=== PATIENT | female | born 1990 | race Caucasian/White ===

== ENCOUNTER 2023-01-26 09:11 | Emergency (ER) | payer MEDICAID ==
[2023-01-26 09:31] VITALS: O2SAT 100
[2023-01-26 10:18] LABS: BASOPHILS # (AUTO) 0.1 10^3/uL (0.0-0.1); BASOPHILS % (AUTO) 1.1 %; EOSINOPHILS # (AUTO) 0.3 10^3/uL (0.0-0.7); EOSINOPHILS % (AUTO) 3.8 %; HCT - HEMATOCRIT 39.5 % (37.0-47.0); HGB - HEMOGLOBIN 12.5 g/dL (12.0-16.0); LYMPHOCYTES # (AUTO) 3.1 10^3/uL (1.5-3.5); LYMPHOCYTES % (AUTO) 34.9 %; MEAN CORPUSCULAR HEMOGLOBIN 27.1 pg (27.0-31.0); MEAN CORPUSCULAR HGB CONC 31.6 g/dL (32.0-36.0); MEAN CORPUSCULAR VOLUME 85.7 fL (81.0-99.0); MEAN PLATELET VOLUME 10.3 fL (7.9-10.8); MONOCYTES # (AUTO) 0.7 10^3/uL (0.0-1.0); MONOCYTES % (AUTO) 7.4 %; NEUTROPHILS # (AUTO) 4.6 10^3/uL (1.5-6.6); NEUTROPHILS % (AUTO) 52.3 %; PLT - PLATELET COUNT 291 10^3/uL (130-450); RED BLOOD COUNT 4.61 10^6/uL (4.20-5.40); RED CELL DISTRIBUTION WIDTH 13.4 % (12.0-15.0); WHITE BLOOD COUNT 8.8 x10^3/uL (4.8-10.8)
[2023-01-26 10:34] LABS: CALCIUM 9.3 mg/dL (8.5-10.3); CREATININE 0.6 mg/dL (0.6-1.3); POTASSIUM 3.4 mmol/L (3.5-4.5)
--- NOTE | 2023-01-26 13:16 | Ultrasound Report ---
PROCEDURE: OB First Trimester INDICATIONS: left lower abd pain, vag bleeding, early preg OUTSIDE/PRIOR DATING DATA: Last menstrual period (LMP): 11/26/2022. LMP-based estimated date of delivery (SARAH): 09/02/2023. First dating scan (date and location): 01/26/2023. Estimated date of delivery (SARAH) from first dating scan: Not applicable. TECHNIQUE: Real-time scanning was performed of the fetus and maternal pelvic organs, with image documentation. COMPARISON: None FINDINGS: Intrauterine gestational sac present. Embryo: Intrauterine gestational sac is identified with measurement of 4 mm corresponding to 5 weeks 1 day. There is no visualized pole or definitive yolk sac. Measurement variability in dating: +/- 4 weeks by LMP, +/- 7 days by mean sac diameter (use before 6 weeks gestation if crown-rump length not able to be measured), +/- 5 days by crown-rump length (6-12 weeks gestation). Maternal organs: Ovaries appear within normal limits. IMPRESSION: Intrauterine gestational sac without visualized pole or yolk sac. Recommend correlation of beta hCG levels and short interval imaging follow-up to document progression versus blighted ov um. Reviewed by: Geno Mitchell MD on 01/26/2023 1:15 PM PDT Approved by: Geno Mitchell MD on 01/26/2023 1:15 PM PDT Station ID: [id number]
--- NOTE | 2023-01-26 13:29 | ED Physician Documentation ---
PD HPI FEMALE - Stated complaint Stated Complaint: BLEEDING - Chief complaint Chief Complaint: General - History obtained from History obtained from: Patient - History of Present Illness Timing - details: Abrupt onset, Still present (had onset of spotting pink blood yesterday, then some darker blood with some left lower abd cramps. Then back to red blood. Small amount only. She is concerned since found out in the past week. LMP 11/26/22, so could be up to 7 weeks.), Waxing and waning Associated symptoms: Vaginal bleeding. No: Fever, Dysuria Contributing factors: (tested positive HCG within the past week. Has LMP 11/26/22. could be off on dates, or may be small for EGA due to distress/demise. Will try to get closer assessment with labs/US.) Review of Systems Constitutional: denies: Fever, Chills Cardiac: denies: Chest pain / pressure Respiratory: denies: Dyspnea, Cough GI: reports: Abdominal Pain (left lower), Nausea. denies: Diarrhea Neurologic: reports: Generalized weakness. denies: Near syncope PD PAST MEDICAL HISTORY - Past Medical History Past Medical History: No Cardiovascular: None Respiratory: None Neuro: None - Past Surgical History Past Surgical History: No - Present Medications Home Medications: Ambulatory Orders Medication Instructions Recorded Confirmed HYDROcod/ACETAM 5/325 [[place] 5/325] 1 ea PO Q6H PRN #12 tablet 01/26/23 Naproxen 500 mg PO BID #15 tab 01/26/23 Ondansetron Odt [Zofran] 4 mg TL Q6H PRN #10 tablet 01/26/23 - Allergies Allergies/Adverse Reactions: Allergies Allergy/AdvReac Type Severity Reaction Status Date / Time No Known Drug Allergies Allergy Verified 01/26/23 09:24 - Social History Does the pt smoke?: Yes Smoking Status: Current every day smoker Does the pt drink ETOH?: No Does the pt have substance abuse?: No Substance Use and Type: Marijuana PD ED PE NORMAL - General General: Alert and oriented X 3, No acute distress, Well developed/nourished - Neck Neck: Supple, no meningeal sign, No adenopathy - Cardiac Cardiac: RRR, No murmur - Respiratory Respiratory: No respiratory distress, Clear bilaterally - Abdomen Abdomen: Soft, Non distended, No organomegaly, Other (tender periumbilical area without garding nor tu) - Female Female : Deferred, Other (will get US and will be moree accurate. ) - Derm Derm: Normal color, Warm and dry Results - Vitals Vitals: Vital Signs - 24 hr 01/26/23 01/26/23 01/26/23 09:26 12:31 13:59 Temperature 36.7 C Heart Rate 82 101 H 92 Respiratory 16 18 18 Rate Blood Pressure 157/109 H 150/94 H 155/96 H O2 Saturation 100 100 100 Oxygen O2 Source Room air - Labs Labs: Laboratory Tests 01/26/23 01/26/23 01/26/23 10:10 10:10 10:54 WBC 8.8 RBC 4.61 Hgb 12.5 Hct 39.5 MCV 85.7 MCH 27.1 MCHC 31.6 L RDW 13.4 Plt Count 291 MPV 10.3 Neut # (Auto) 4.6 Lymph # (Auto) 3.1 Baca # (Auto) 0.7 Eos # (Auto) 0.3 Baso # (Auto) 0.1 Absolute Nucleated RBC 0.00 Nucleated RBC % 0.0 Sodium 135 Potassium 3.4 L Chloride 102 Carbon Dioxide 27 Anion Gap 6.0 BUN 6 Creatinine 0.6 Estimated GFR (MDRD) 117 Glucose 99 Calcium 9.3 Beta HCG, Quant 974.9 Blood Type B POSITIVE - Rads (name of study) OB US Relevant Findings:: Prelim report reviewed (gest sac without pole. Est 5w1d saize so some limitation is just early dates. ), EMP independent interpretation of test PD Medical Decision Making - ED course Complexity details: considered differential (early with now vag bleeding small amount and left lower abd pains/cramps. Need to establish if IUP versus ectopic and also likely viability of the fetus. ), d/w patient Reviewed Lab Results: Quant HCG is somewhat low for expected dates. WIll need to recheck in 3 days. I wrote Rx for it and she hopefully can get lab drawn at any lab draw spot. I listed "result to Dr Zhang in [place]. Onsideration is IUFD with incomplete miscarriage, versus early an d still viable. This can impact what is done for pt if she plans termination. If increased bleeding, pain, or signs of infection, then presume D&C. If spontaneous miscarriage completes, then not further intevention needed. If rising HCG, then [facility] appt with [facility] from now. ED course: The patient states she does not intend to keep the pregnandy. Has apt with [facility] Jan 21. However is concerned about potential miscarriage already happening, and eval for ectopic. Can get quant HCG which was 947. hemoglobin is normal. OB ultrasound is showing gestational sac intrauterine without obvious yok sac. NO free fluids. Look at ovaries shows normal blood flow and no cysts/masses. Departure - Departure Disposition: 01 Home, Self Care Clinical Impression: Early stage of , Vaginal bleeding affecting early Condition: Stable Record reviewed to determine appropriate education?: Yes Instructions: ED Miscarriage Poss Follow-Up: SINAI ZHANG MD [Primary Care Provider] - [facility] [Provider Group] Prescriptions: Naproxen 500 mg PO BID #15 tab HYDROcod/ACETAM 5/325 [[place] 5/325] 1 ea PO Q6H PRN #12 tablet PRN Reason: Pain Ondansetron Odt [Zofran] 4 mg TL Q6H PRN #10 tablet PRN Reason: Nausea / Vomiting Comments: Your quantitative hCG was 974 which can be in the appropriate range for your stage of though may be a little on the low side. Your ultrasound showed a intrauterine without an obvious heartbeat or pole. This may suggest a incomplete miscarriage at this point though its not unusual to not see a heartbeat at 5 weeks gestational age. More definitive will be a repeat of the blood test hCG in about 3 days. In a viable this number will be still going up and should be about double from the 974 currently. And a nonviable or incomplete miscarriage, the number will go down by about half to around 400. You can get the blood test drawn at one of the outpatient clinics. Follow-up with your primary care office or the [facility] as planned. Return to the ER if you have significant increase in cramping or bleeding or you develop any fevers, purulent vaginal discharge or other concerns. I sent prescriptions for ondansetron nausea medicine and naproxen anti- inflammatory to your pharmacy [facility]. In addition to that use Tylenol every 4- 6 hours if needed for pain or cramps or hydrocodone/acetaminophen if needed for worse pains. I am prescribing a short course of narcotic pain medication for you. These are potentially dangerous and addictive medications that should be used carefully. These medications may constipate you. Take an urup-cni-[id number] stool softener such as docusate twice daily with plenty of water while taking these medications. If you go 24 hours without a bowel movement, take [id number] MiraLAX, per package instructions. Do not drink or drive while taking these medications. If you received narcotic or sedating medications while in the emergency d epartment do not drive for 24 hours. Store this medication in a safe, secure place and out of reach of children. It is a violation of federal law to give or sell this medication to another person or to use in a manner other than prescribed. The ED will not refill narcotic prescriptions, including prescriptions lost or stolen. You can dispose of unwanted medications at the [facility]'s office or at several pharmacies such as [email or web address]. Forms: PCP List Discharge Date/Time: 01/26/23 14:11
[2023-01-26 14:09] VITALS: BP 155/96
== END 2023-01-26 14:11 | disposition home or self-care (01) ==
LOC: ED 09:11
DX: O20.9 Hemorrhage in early pregnancy, unspecified (principal); O99.330 Smoking (tobacco) complicating pregnancy, unspecified trimester; F17.200 Nicotine dependence, unspecified, uncomplicated; Z3A.00 Weeks of gestation of pregnancy not specified
CPT/HCPCS: 36415; 80048; 84702; 85025; 86900; 86901; 99284

== ENCOUNTER 2023-12-24 02:13 | Outpatient (CLI) | payer MEDICAID | END 2023-12-24 02:14 | disposition EMS.NT | LOC: EMS 02:13 | DX: M54.2 Cervicalgia (principal); Y04.8XXA Assault by other bodily force, initial encounter ==